=== PATIENT | male | born 2000 | race Two or more races ===

== ENCOUNTER 2020-10-02 21:36 | Emergency (ER) | payer OTHER ==
--- NOTE | 2020-10-03 01:43 | RADIOLOGY REPORT (SQ) ---
EXAM DESCRIPTION: FOREARM LEFT [facility]: XR FOREARM 2 VIEWS Views: 2 CLINICAL HISTORY: 20 years Male; injury; pinched in machinery. Abrasion along the medial side COMPARISON: None. FINDINGS: Negative for acute fracture, dislocation, or radiopaque foreign body. No soft tissue air. No lytic bone changes or periosteal reaction. IMPRESSION: 1. No acute findings.
--- NOTE | 2020-10-03 01:55 | ER Document Report ---
HPI - HPI Patient complains to provider of: left forearm pain Time Seen by Provider: 10/03/20 00:51 Pain Level: 1 Context: 20-year-old male with no previous medical problems presents to the emergency room with swelling to his left forearm. Patient states while at work today his arm got pinched in a machine with a roller. Patient states his skin started to slough off. They were able to stop the machine and roll his arm out of it. States he has been having increasing swelling since. Minimal pain. Ambidextrous. No previous trauma or injury to his forearm. Tetanus is up-to-date. Associated Symptoms: None Exacerbated by: Denies, Deep breathing Similar symptoms previously: No Recently seen / treated by doctor: No - ROS Systems Reviewed and Negative: Yes All other systems reviewed and negative - CONSTITUTIONAL Constitutional: DENIES: Fever, Chills - NEURO Neurology: DENIES: Weakness - MUSCULOSKELETAL Musculoskeletal: REPORTS: Swelling - DERM Skin Color: Erythema Skin Problems: Abrasion Past Medical History - General Information source: Patient - Social History Smoking Status: Never Smoker Frequency of alcohol use: None Drug Abuse: None Family History: Reviewed & Not Pertinent Patient has homicidal ideation: No Vertical Provider Document - CONSTITUTIONAL Agree With Documented VS: Yes Exam Limitations: No Limitations General Appearance: Mild Distress - INFECTION CONTROL TRAVEL OUTSIDE OF THE [place] IN LAST 30 DAYS: No - HEENT HEENT: Atraumatic, Normocephalic - NECK Neck: Normal Inspection, Supple - RESPIRATORY Respiratory: Breath Sounds Normal, No Respiratory Distress - CARDIOVASCULAR Cardiovascular: Regular Rate, Regular Rhythm, No Murmur - MUSCULOSKELETAL/EXTREMETIES Musculoskeletal/Extremeties: FROM, Non-Tender - moderate amount of swelling noted to left forearm that extends from the elbow to the wrist. soft non tender to palpation. No discharge or draining noted. Notes: Left forearm with erythema and swelling. Nontender to palpation. Full range of motion with flexion, extension internal and external rotation to the left forearm. - NEURO Level of Consciousness: Awake, Alert, Appropriate Motor/Sensory: No Motor Deficit, No Sensory Deficit Notes: Positive left radial pulse. Capillary refill less than 3 seconds. Full sensation to painful and light stimuli. He is neurovascularly intact. - DERM Integumentary: Warm, Dry Notes: Left forearm with abrasion noted. Erythema, swelling that extends from the elbow to the wrist on the left forearm. Soft, Nontender, not warm to touch,. No discharge or draining noted. Not warm or tender to palpation. Course - Re-evaluation Re-evalutation: 10/03/20 01:52 Patient is afebrile, nontoxic-appearing, neurovascularly intact. Denies pain. Pain-free on exam. Reviewed x-ray results with patient. Counseled to elevate left arm on a pillow as much as possible. Tylenol and or Motrin as needed for pain. Outpatient follow-up with employer for Worker's Comp. referral if unable to return to work. Patient was seen in conjunction with attending ER physician Dr. Sterling who came to triage and examined and evaluated patient as well. Patient was given strict return to the emergency room guidelines. Return for any new or worsening symptoms. All questions were answered. Patient verbalized understanding and agrees with plan of care. 10/03/20 01:57 - Vital Signs Vital signs: Temp Pulse Resp BP Pulse Ox 98.2 F 71 20 127/67 H 98 10/02/20 22:03 10/02/20 22:03 10/02/20 22:03 10/02/20 22:03 10/02/20 22:03 - Diagnostic Test Radiology reviewed: Reports reviewed Discharge - Discharge Clinical Impression: Abrasion of left forearm, initial encounter, Localized swelling of left forearm Condition: Stable Disposition: HOME, SELF-CARE Instructions: Abrasions ([facility]), Compartment Syndrome Cautions ([facility]) Additional Instructions: Rest, ice, elevate left forearm as much as possible. Tylenol and or Motrin as needed for pain. Follow-up with your employer for a Worker's Comp. referral if unable to return to work. Return to the emergency room for any new or worsening symptoms.
[2020-10-03 01:58] VITALS: BP 133/72
== END 2020-10-03 02:00 | disposition home or self-care (01) ==
LOC: ER 21:36
DX: S50.812A Abrasion of left forearm, initial encounter (principal); M79.632 Pain in left forearm; M79.89 Other specified soft tissue disorders; X58.XXXA Exposure to other specified factors, initial encounter
CPT/HCPCS: 99283

== ENCOUNTER 2020-10-14 22:17 | Emergency (ER) | payer OTHER ==
[2020-10-14 22:23] VITALS: BP 130/66
--- NOTE | 2020-10-14 22:50 | ER Document Report ---
HPI - HPI Patient complains to provider of: arm swelling Time Seen by Provider: 10/14/20 22:39 Notes: 20-year-old male to the emergency department with complaints of left arm swelling and discoloration that is been persistent since he got it caught in a planning machine on October 03. He was seen in the emergency department directly after the incident. He had an x-ray. He was discharged home and told to elevate and ice the arm. He states that he has been doing these things but his arm continues to be swollen. He denies any pain in the arm. He states that she just seems to be unsightly and discolored. Denies any fevers or chills. He denies any change in strength or range of motion. - ROS Systems Reviewed and Negative: Yes All other systems reviewed and negative - CONSTITUTIONAL Constitutional: DENIES: Fever, Chills - EENT EENT: DENIES: Sore Throat, Ear Pain - NEURO Neurology: DENIES: Headache - CARDIOVASCULAR Cardiovascular: DENIES: Chest pain - RESPIRATORY Respiratory: DENIES: Trouble Breathing, Coughing - GASTROINTESTINAL Gastrointestinal: DENIES: Abdominal Pain, Nausea, Patient vomiting, Diarrhea - MUSCULOSKELETAL Musculoskeletal: REPORTS: Swelling - Swelling of the left forearm - DERM Skin Color: Normal Skin Problems: None Past Medical History - General Information source: Patient - Social History Smoking Status: Never Smoker Frequency of alcohol use: None Drug Abuse: None Family History: Reviewed & Not Pertinent Vertical Provider Document - CONSTITUTIONAL Agree With Documented VS: Yes Exam Limitations: No Limitations General Appearance: WD/WN, No Apparent Distress - INFECTION CONTROL TRAVEL OUTSIDE OF THE [place] IN LAST 30 DAYS: No - HEENT HEENT: PERRLA - NECK Neck: Normal Inspection, Supple - RESPIRATORY Respiratory: Breath Sounds Normal, No Respiratory Distress. negative: Rales, Rhonchi, Wheezing - CARDIOVASCULAR Cardiovascular: Regular Rate, Regular Rhythm, No Murmur - GI/ABDOMEN Gastrointestinal: Abdomen Soft, Abdomen Non-Tender, No Organomegaly - BACK Back: Normal Inspection - MUSCULOSKELETAL/EXTREMETIES Notes: There is a noted hematoma to the left forearm with ecchymosis. It is fluctuant and not tense. There is no warmth or erythema. There is no streaking lymphangitis. Handgrip is 5 out of 5 bilaterally. There is no snuffbox tenderness. Radial pulses are intact and equal. There is no tenderness to palpation at the left elbow or left shoulder. He has full range of motion against resistance with 5 out of 5 strength in flexion and extension of the elbow and shoulder. The compartments are soft. - NEURO Level of Consciousness: Awake, Alert, Appropriate Motor/Sensory: No Motor Deficit, No Sensory Deficit - DERM Integumentary: Warm, Dry, No Rash Course - Re-evaluation Re-evalutation: 10/14/20 Impression: Forearm hematoma. I had Dr. Sterling, my ER attending, come and see the patient. He actually rounded on this patient when he initially came to the emergency department. We agree that this does not seem to be infected. It is nontender and is not hot to touch. The patient's vital signs are reassuring. We agree that we will have the patient follow-up with orthopedist. I have encouraged him to elevate and ice the arm. Return if any fever, pain, streaking redness. Patient agrees with the plan. - Vital Signs Vital signs: Temp Pulse Resp BP Pulse Ox 97.6 F 66 16 130/66 H 100 10/14/20 22:22 10/14/20 22:22 10/14/20 22:22 10/14/20 22:22 10/14/20 22:22 Discharge - Discharge Clinical Impression: Traumatic hematoma of left forearm Qualifiers: Encounter type: subsequent encounter Qualified Code(s): S50.12XD - Contusion of left forearm, subsequent encounter Condition: Stable Disposition: HOME, SELF-CARE Instructions: Hematoma ([facility]) Additional Instructions: Elevate and ice the arm. Follow-up with the orthopedist listed. Return if you have pain, fevers, hot skin with redness to touch. Ice for 20 minutes at a time. Referrals: MYNOR SIMMONS DO [ACTIVE STAFF] - Follow up in 3-5 days (for orthopedic follow up)
== END 2020-10-14 23:00 | disposition home or self-care (01) ==
LOC: ER 22:17
DX: S50.12XD Contusion of left forearm, subsequent encounter (principal); M79.89 Other specified soft tissue disorders; X58.XXXD Exposure to other specified factors, subsequent encounter
CPT/HCPCS: 99282